=== PATIENT | female | born 1950 | race Caucasian/White ===

== ENCOUNTER → 2024-06-15 | Outpatient (CLI) | payer MEDICARE, OTHER, SELFPAY ==
[2024-06-15 10:18] LABS: Absolute Lymphocyte Count 2.88 X10^3/uL (0.83-4.51); Absolute Neutrophil Count 3.7 X10^3/uL (2.0-7.7); Basophil# 0.05 X10^3/uL; Basophil% 0.7 % (0-1); Eosinophil# 0.22 X10^3/uL; Hematocrit 40.5 % (37-47); Lymphocyte # 2.88 X10^3/ul (0.83-4.51); Lymphocyte % 38.9 % (19-41); Mean Corp Hgb Conc 32.1 g/dL (32-36); Mean Corpuscular Volume 96.4 fL (81-99); Mean Platelet Vol. 9.1 fl (6.2-12.0); Monocyte# 0.51 X10^3/uL; Monocyte% 6.9 % (0-10); NRBC Flagged by Analyzer 0 % (0-5); Neutrophil # 3.73 X10^3/uL (2.7-7.7); Neutrophil % 50.2 % (47-70); Platelet Count 250 K/mm3 (150-450); RBC Distribution Width CV 13.4 % (11.6-14.6); White Blood Count 7.4 K/mm3 (4.4-11.0)
[2024-06-15 10:38] LABS: Vitamin D,25 Hydroxy 20.2 ng/mL
[2024-06-15 11:25] LABS: ALB/GLOB Ratio 0.9 RATIO (0.9-2.4); AST(SGOT) 29 U/L (15-37); Alanine Aminotransfer ALT/SGPT 40 U/L (13-56); Albumin, Serum 3.3 g/dL (3.2-5.0); Alkaline Phosphatase 85 U/L (45-117); Anion Gap 7 (5-15); BUN 14 mg/dL (7-18); BUN/Creat Ratio 14.9 RATIO (10-20); Calcium,Total 8.7 mg/dL (8.5-10.1); Chloride 101 mmol/L (98-107); Cholesterol 171 mg/dL (200); Creatinine, Serum 0.94 mg/dL (0.55-1.02); EST Glomerular Filtration Rate 62 mL/min (>60); Est Glom Filt Rate - Afr Amer 75 mL/min (>60); Globulin 3.6 g/dL (2.2-4.2); Glucose 117 mg/dL (74-106); High Density Lipoprotein 51 mg/dL; Potassium 3.3 mmol/L (3.5-5.1); Protein, Total 6.9 g/dL (6.4-8.2); Sodium Level 136 mmol/L (136-145); T4 Free Direct 1.04 ng/dL (0.76-1.46); Triglycerides 246 mg/dL; Very Low Density Lipoprotein 49 mg/dL (5-40)
== END | disposition home or self-care (01) ==
PROVIDERS: PCP Family Medicine; Referring Provider Family Medicine; Visit Provider Family Medicine
DX: I10 Essential (primary) hypertension (principal); E03.9 Hypothyroidism, unspecified; K21.9 Gastro-esophageal reflux disease without esophagitis
CPT/HCPCS: 36415; 80053; 80061; 82306; 84439; 84443; 85025

== ENCOUNTER → 2024-08-28 | Outpatient (CLI) | payer MEDICARE, OTHER, SELFPAY ==
--- NOTE | 2024-08-28 10:04 | BI_ITS ---
EXAM: SCRN MAMM (CAD)W/TERRENCE BILAT DATE: 08/28/2024 CLINICAL HISTORY: F, Age 73 y/o , SCREENING BREAST CANCER RISK ASSESSMENT: Not reported TECHNIQUE: Bilateral screening digital breast tomosynthesis with 2D and 3D images. Computer aided detection. COMPARISON: Prior exam(s) were compared. FINDINGS: TISSUE DENSITY: The breast tissue is heterogenously dense, which may obscure small masses. Bilateral Breast Mammographic Findings: No suspicious masses, calcifications or other abnormalities are identified. BI/SCRN MAMM (CAD)W/TERRENCE BILAT IMPRESSION: OVERALL FINAL ASSESSMENT: BIRADS 1 NEGATIVE RECOMMENDATION: Routine annual follow-up in 1 Year A letter with findings and recommendations will be mailed to the patient. Reading Location: [id number]
== END | disposition home or self-care (01) ==
LOC: OPBI 10:02
PROVIDERS: PCP Family Medicine; Referring Provider Family Medicine; Visit Provider Family Medicine
DX: Z12.31 Encounter for screening mammogram for malignant neoplasm of breast (principal); Z85.3 Personal history of malignant neoplasm of breast
CPT/HCPCS: 77063; 77067

== ENCOUNTER → 2024-09-07 | Outpatient (CLI) | payer MEDICARE, OTHER, SELFPAY | END | disposition home or self-care (01) | LOC: LABSPEC 08:10 | PROVIDERS: PCP Family Medicine; Referring Provider Nurse Practitioner Family; Visit Provider Nurse Practitioner Family | DX: R30.0 Dysuria (principal) | CPT/HCPCS: 87077; 87086; 87088; 87186 ==

== ENCOUNTER → 2024-12-29 | Outpatient (CLI) | payer MEDICARE, OTHER, SELFPAY ==
[2024-12-29 13:05] LABS: Creatinine, Urine (random) 21.80 mg/dL (28.00-217.00); Microalbumin,Random Urine < 12.0 mg/L (<20 mg/L)
[2024-12-29 16:07] LABS: Potassium 4.3 mmol/L (3.3-5.1)
--- OUTSIDE RECORDS SUMMARY | 2024-12-29 20:13 | XMS RPT_ITS | CCD ---
Author Organization [facility] Care Team Providers Care Cop Breaker Name Role Phone Jose Luis GERMAN, Carisa Primary Care Provider [phone] Carisa Amaya MD Attending Provider Jose Luis GERMAN, Carisa Referring Provider [phone] Jose Luis GERMAN, Carisa Primary Care Provider [phone] Jose Luis GERMAN, Carisa Attending Provider Jose Luis GERMAN, Carisa Referring Provider Roof COMPENSATION SUPERVISOR-C, Adam Gonzalez Attending Provider [phone] Roof COMPENSATION SUPERVISOR-C, Adam H Referring Provider [phone] Jose Luis, Chalon Referring Unavailable Jose Luis, Chalon Primary Care Unavailable Roof COMPENSATION SUPERVISOR, Adam Gonzalez Attending Unavailable Jose Luis, Yoditon Referring Unavailable Jose Luis, Chalon Primary Care Unavailable Jose Luis, Chalon Attending Unavailable Jose Luis, Chalon Referring Unavailable Jose Luis, Chalon Primary Care Unavailable Jose Luis, Chalon Attending Unavailable Jose Luis, Chalon Primary Care Unavailable Roof COMPENSATION SUPERVISOR, Adam H Attending Unavailable Roof COMPENSATION SUPERVISOR, Adam H Referring Unavailable Jose Luis, Chalon Primary Care Unavailable McMorrow COMPENSATION SUPERVISOR, Neal Attending Unavailable McMorrow COMPENSATION SUPERVISOR, Neal Referring Unavailable Allergies Allergy Classification Reported Allergen(s) Allergy Type Date of Onset Reaction(s) Facility (1 source) Sulfonamides (Antibiotic) Propensity to adverse reactions [address] [place] [address] (1 source) Sulfonamides (Antibiotic) Drug allergy (disorder) [address] [place] [address] Repository Medications Current Medications Medication Drug Class(es) Dates Sig (Normalized) Sig (Original) amoxicillin 875 mg / clavulanate 125 mg oral tablet (1 source) Penicillin-class Antibacterial Start: 09-06-2024 Amoxicillin-Pot Clavulanate 875-125 mg tablet Active 1 {tbl} PO TWICE A DAY 14 September 06, 2024 12:00am September 12, 2024 12:00am atenolol 100 mg oral tablet (1 source) beta-Adrenergic Chary Start: 09-06-2024 take 1 tablet by mouth once daily Atenolol 100 mg tablet Active 100 mg PO daily September 06, 2024 12:00am atorvastatin 40 mg oral tablet (1 source) HMG-CoA Reductase Inhibitor Start: 09-06-2024 take 1 tablet by mouth once daily Atorvastatin 40 mg tablet Active 40 mg PO daily September 06, 2024 12:00am levothyroxine sodium 0.125 mg oral tablet (1 source) l-Thyroxine Start: 09-06-2024 Levothyroxine 125 mcg tablet Active 125 ug PO September 06, 2024 12:00am losartan potassium 25 mg oral tablet (1 source) Angiotensin 2 Receptor Cahry Start: 09-06-2024 Losartan 25 mg tablet Active 25 mg PO September 06, 2024 12:00am Omeprazole 20 mg capsule,delayed release(DR/EC) (1 source) Start: 09-06-2024 take 1 capsule by mouth once daily Omeprazole 20 mg capsule,delayed release(DR/EC) Active 20 mg PO daily September 06, 2024 12:00am phenazopyridine hydrochloride 100 mg oral tablet (1 source) Start: 09-06-2024 take 1 tablet by mouth three times daily as needed Phenazopyridine (Pyridium) 100 mg tablet Active 100 mg PO THREE TIMES A DAY as needed September 06, 2024 12:00am pseudoephedrine hydrochloride 30 mg oral capsule (1 source) alpha-Adrenergic Agonist Start: 09-06-2024 take 1 capsule by mouth every four to six hours as needed Pseudoephedrine Hcl (Nasal Decongestant (Pseudoeph)) 30 mg capsule (abuse-resistant) Active 30 mg PO EVERY 4-6 HOURS as needed September 06, 2024 12:00am DNExceed 4 doses/24h Problems Active Problems Problem Classification Problem Date Documented Date Episodic/Chronic Disorders of lipid metabolism (1 source) Hypercholesterolemia; Translations: [Pure hypercholesterolemia, unspecified] 09-06-2024 Chronic Esophageal disorders (1 source) Gastroesophageal reflux disease; Translations: [Gastro-esophageal reflux disease without esophagitis] 09-06-2024 Chronic Essential hypertension (2 sources) Hypertensive disorder; Translations: [Essential (primary) hypertension] Onset: 07-03-2024 09-06-2024 Chronic Osteoporosis (1 source) Age-related osteoporosis without current pathological fracture; Translations: [Age-related osteoporosis without current pathological fracture] Onset: 12-25-2024 Chronic Other upper respiratory infections (2 sources) Maxillary sinusitis; Translations: [Chronic maxillary sinusitis] 09-06-2024 Chronic Thyroid disorders (1 source) Hypothyroidism; Translations: [Hypothyroidism, unspecified] 09-06-2024 Chronic Urinary tract infections (2 sources) Urinary tract infectious disease; Translations: [Urinary tract infection, site not specified] 09-06-2024 Episodic Past or Other Problems Problem Classification Problem Date Documented Da te Episodic/Chronic Genitourinary symptoms and ill-defined conditions (1 source) Dysuria; Translations: [Dysuria] Onset: 09-10-2024 Episodic Other screening for suspected conditions (not mental disorders or infectious disease) (1 source) Encounter for screening mammogram for malignant neoplasm of breast; Translations: [Encounter for screening mammogram for malignant neoplasm of breast] Onset: 09-03-2024 Episodic Results Test Name Value Interpretation Reference Range Facility Urine Cultureon 09-10-2024 [facility] Urine Culture Urine Culture Urine Culture Escherichia coli [place] Count 25,000-50,000 Morganella morganii sp morgani Morganella morganii sp morgani [place] Count 11,000-25,000 Klebsiella pneumoniae sp pneum Ampicillin Islt BRISEYDA >=32 Ampicillin+Sulbac Islt BRISEYDA >=32 R Cefepime Islt BRISEYDA <=0.12 cefTRIAXone Islt BRISEYDA <=0.25 S Ciprofloxacin Islt BRISEYDA <=0.06 S B-Lactamase Extended Susc Islt NEG Gentamicin Islt BRISEYDA <=1 S levoFLOXacin Islt BRISEYDA <=0.12 S Meropenem Islt BRISEYDA <=0.25 S Nitrofurantoin Islt BRISEYDA <=16 S Pip+Tazo Islt BRISEYDA 8 S TMP SMX Islt BRISEYDA <=20 S Morganella morganii sp morgani: REACTION Ampicillin Islt BRISEYDA >=32 R Ampicillin+Sulbac Islt BRISEYDA 16 I Ciprofloxacin Islt BRISEYDA <=0.06 Gentamicin Islt BRISEYDA <=1 S levoFLOXacin Islt BRSIEYDA <=0.12 S Meropenem Islt BRISEYDA <=0.25 S Nitrofurantoin Islt BRISEYDA 128 R Pip+Tazo Islt BRISEYDA <=4 S TMP SMX Islt BRISEYDA <=20 S Klebsiella pneumoniae sp pneum: REACTION Ampicillin Islt BRISEYDA >=32 R Ampicillin+Sulbac Islt BRISEYDA 16 I Cefepime Islt BRISEYDA <=0.12 cefTRIAXone Islt BRISEYDA <=0.25 S Ciprofloxacin Islt BRISEYDA <=0.06 S B-Lactamase Extended Susc Islt NEG Gentamicin Islt BRISEYDA <=1 S levoFLOXacin Islt BRISEYDA <=0.12 S Meropenem Islt BRISEYDA <=0.25 S Nitrofurantoin Islt BRISEYDA 64 I Pip+Tazo Islt BRISEYDA <=4 S TMP SMX Islt BRISEYDA <=20 S [facility] Comment on above: Performed By: #### M 100.2200 #### [facility] [address] [place], [address] Urine cultureOrdered By: Jr Chowdary on 09-07-2024 Bacteria identified Cx Nom (U) Escherichia coli Abnormal [facility] Bacteria identified Cx Nom (U) Morganella morganii sp morgani Abnormal [facility] Bacteria identified Cx Nom (U) Klebsiella pneumoniae sp pneum Abnormal [facility] - Chemistry and C hemistry - challengeOrdered By: Adam Chowdary on 09-06-2024 Bilirubin Ql (U) Negative [facility] Glucose Ql (U) Negative [facility] Ketones Ql (U) Negative [facility] pH (U) 5.0 [pH] [facility] Specific gravity (U) [Rel density] <1.005 [facility] Urobilinogen (U) [Mass/Vol] 0.5786592 mg/dL [facility] - Hematology and Cell countsOrdered By: Adam Chowdary on 09-06-2024 Hemoglobin Ql (U) Trace [facility] - Specimen inform ationOrdered By: Adam Chowdary on 09-06-2024 Clarity (U) Clear [facility] Color (U) Yellow [facility] - UrinalysisOrder ed By: Adam Chowdary on 09-06-2024 Nitrite Ql (U) Negative [facility] Protein Ql (U) [facility] No Panel InformationOrdered By: Adam Chowdary on 09-06-2024 Urine Leukocytes Positive [facility] Urine Non-Hemolyzed Blood [facility] Urgent Care Visit Reporton 0 09-06-2024 Urgent Care Visit Report [facility] [address], [address] [place] [address] OFFICE VISIT Date of Service: 09/06/24 MR#: [id number] Acct: [id number] Name: DAPHNE DEVINE Rep #: [id number] : 1950 Provider: ANALISA bundy Age/Sex: 73/F Location: [facility] Status: Signed Intake Vital Signs 09/06/24 11:36 Height 5 ft 6 in Weight: 207 lb BMI 33.4 BP 168/92 H Blood Pressure Location Rt brachial Position Sitting Respiration 14 Pulse 64 Pulse Source Monitor Temp 98.4 F Temp Source Temporal Pulse Oximetry (%) 99 Oxygen Delivery Method room air Intake Visit Reasons: Chief Complaint: Sinus congestion, dysuria Oral Surgeon Required: No Accompanied by: Self Is patient in pain?: No Allergies Sulfa (Sulfonamide Antibiotics) Adverse Reaction (Verified 09/06/24 11:22) Nausea Medications ???Medication ???Instructions ???Recorded ???Confirmed ???Type amoxicillin 875 mg-potassium 1 tab PO BID 7 days #14 tabs 09/0609/06/24 Rx clavulanate 125 mg tablet atenolol 100 mg tablet 100 mg PO QDAY 09/06/24 09/06/24 H istory atorvastatin 40 mg tablet 40 mg PO QDAY 09/06/24 09/06/24 Hi story levothyroxine 125 mcg tablet 125 mcg PO 09/06/24 09/06/24 Histo ry losartan 25 mg tablet 25 mg PO 09/06/24 09/06/24 History omeprazole 20 mg capsule,delayed 20 mg PO QDAY 09/06/24 09/06/24 Hi story release phenazopyridine 100 mg tablet 100 mg PO TID PRN 09/06/24 5 History (Pyridium) pseudoephedrine HCl 30 mg capsule 30 mg PO Q4-6H PRN 09/06/2409/06 History (abuse-resistant) (Nasal Decongestant (pseudoephedrine)) Have you fallen in the past year?: No PFSH Medical History (Updated 09/06/24 @ 12:00 by Adam Chowdary COMPENSATION SUPERVISOR, COMPENSATION SUPERVISOR-C) GERD (gastroesophageal reflux disease) Hypothyroidism Breast cancer Hypercholesteremia Hypertension Surgical History (Updated 09/06/24 @ 11:24 by Belén Vasquez) S/P colon resection S/P hysterectomy Family History (Updated 09/06/24 @ 11:36 by Belén Vasquez) Mother Breast cancer Sister Breast cancer Social History (Updated 09/06/24 @ 11:24 by Belén Vasquez) Smoking Status: Never smoker alcohol intake: current alcohol intake frequency: a few times a month Alcohol type: wine HPI HPI Chief Complaint: Sinus congestion, dysuria Details: DAPHNE DEVINE, is a 73 F who presents to the office today for concerns regarding possible sinus infection. She states she was seen with primary care provider and started on Augmentin. She states her symptoms improved, but now have returned. She also expresses concerns for possible urinary tract infection. She was prescribed Augmentin for 7 days, but only took 5 and gave some to her . She has taken AZO with some relieve. ROS Const Constitutional: Positive for headache(s); No body ache, chills, fatigue, fever(s) or change in appetite Eyes Eyes: No blurry vision, change in vision, double vision, irritation, discharge, vision loss, dry eyes, bulging eyes, floaters, visual disturbances, eye pain, Light sensitivity, spots in vision, tunnel vision or other ENT ENT: Positive for sinus pressure, sinus pain, nasal discharge, post nasal drip, headache(s) and sore throat; No ear or mastoid pain, ear discharge, ear pressure, tinnitus, dizziness/vertigo, nosebleed/epistaxis , nasal congestion, nose pain, facial pain, dental pain, difficulty swallowing, bad breath, hoarseness, lip swelling, mouth lesions, mouth pain, neck pain, tongue swelling or throat swelling Resp Respiratory: Positive for cough Cough: Yes non-productive; No change in phlegm color, chest congestion, hemoptysis, pain on inspiration, shortness of breath, pain with cough, stridor or wheezing Cardio Cardiology: No chest pain at rest, chest pain with exertion, shortness of breath, dyspnea on exertion or lightheadedness Gastro GI: No abdominal pain, change in bowel habits, constipation, diarrhea, difficulty swallowing, nausea/dyspepsia or vomiting Genitourinary-Femal e: Positive for painful urination; No burning urination, urinary frequency, urinary urgency or side pain Musc Musculoskeletal: No joint pain or neck pain Skin Skin: No rash Neuro Neurology: Positive for headache(s); No visual disturbances Psych Psychiatric: No change in appetite Endo Endocrine: No fatigue Aller/Imm Allergy/Immunologic : No lip swelling, throat swelling, tongue swelling or wheezing Exam Const General: cooperative, healthy appearing, comfortable and no acute distress Orientation: alert, awake and oriented x3 HENMT Head: normal to inspection and normocephalic Ears: hearing grossly normal bilaterally, external ears normal and TM's normal bilaterally Nose: external nose normal, nares normal and no nasal discharge (more content not included)... [facility] Breast imaging reportOrdered By: Carmela Caruso on 09-01-2024 Study report [facility] Imaging Services [address] [place], [place] [address] SCRN MAMM (CAD)W/TERRENCE BILAT MR#: [id number] Acct: [id number] Name: DAPHNE DEVINE Rep #: [id number] : 1950 F 73 From: Juan M Mullins MD PCP: Dr. Carisa Amaya MD Status: REG CL I Study:SCRN MAMM (CAD)W/TERRENCE BILAT Date of Exa m: 08/28/24 Exam# [id number] Ordering Dr: Sis Amaya MD EXAM: SCRN MAMM (CAD)W/TERRENCE BILAT DATE: 08/28/2024 CLINICAL HISTORY: F, Age 73 y/o , SCREENING BREAST CANCER RISK ASSESSMENT: Not reported TECHNIQUE: Bilateral screening digital breast tomosynthesis with 2D and 3D images. Computeraided detection. COMPARISON: Prior exam(s) were compared. FINDINGS: TISSUE DENSITY: The breast tissue is heterogenously dense, which may obscure small masses. Bilateral Breast Mammographic Findings: No suspicious masses, calcifications or other abnormalities are identified. BI/SCRN MAMM (CAD)W/TERRENCE BILAT IMPRESSION: OVERALL FINAL ASSESSMENT: BIRADS 1 NEGATIVE RECOMMENDATION: Routine annual follow-up in 1 Year A letter with findings and recommendations will be mailed to the patient. Reading Location: [id number] CC: Dr. Carisa Amaya MD ~ Petrography Teacher: Signed [facility] SCRN MAMM (CAD)W/TERRENCE BILATo n 08-28-2024 SCRN MAMM (CAD)W/TERRENCE BILAT [facility] Imaging Services [address] [place], [place] [address] SCRN MAMM (CAD)W/TERRENCE BILAT MR#: [id number] Acct: [id number] Name: DAPHNE DEVINE Rep #: [id number] : 1950 F 73 From: Carmela Martinez i, MD PCP: Dr. Carisa Amaya MD Status: REG CLI Study: SCRN MAMM (CAD)W/TERRENCE BILAT Date of Exam: 06/23 Exam# [id number] Ordering Dr: Carisa Amaya MD EXAM: SCRN MAMM (CAD)W/TERRENCE BILAT DATE: 08/28/2024 CLINICAL HISTORY: F, Age 73 y/o , SCREENING BREAST CANCER RISK ASSESSMENT: Not reported TECHNIQUE: Bilateral screening digital breast tomosynthesis with 2D and 3D images. Computer aided detection. COMPARISON: Prior exam(s) were compared. FINDINGS: TISSUE DENSITY: The breast tissue is heterogenously dense, which may obscure small masses. Bilateral Breast Mammographic Findings: No suspicious masses, calcifications or other abnormalities are identified. BI/SCRN MAMM (CAD)W/TERRENCE BILAT IMPRESSION: OVERALL FINAL ASSESSMENT: BIRADS 1 NEGATIVE RECOMMENDATION: Routine annual follow-up in 1 Year A letter with findings and recommendations will be mailed to the patient. Reading Location: [id number] CC: Dr. Carisa Amaya MD Petrography Teacher: Signed [facility] 19-TW-Hoq[place]au DOrdered By: Nichelle Amaya on 06-15-2024 Vitamin D 25-Hydroxy 20.2 ng/mL [facility] Comment on above: Vitamin D 25(OH) Sta tus Range Deficiency <20 ng/mL (50nmol/L) Insufficiency 20 - 30 ng/mL (50 - 75 nmol/L) Sufficiency 30 - 100 ng/mL (75 - 250 nmol/L) Toxicity >100 ng/mL (>250 nmol/L) Absolute lymphocyte countOrd ered By: Carisa Grayke on 06-15-2024 Lymphocytes Auto (Unsp spec) [#/Vol] 2.88 10*3/uL 0.83-4.51 [facility] Absolute neutrophil countOrd ered By: Carisa Jose Luis on 06-15-2024 Neutrophils (Bld) [#/Vol] 3.7 10*3/uL 2.0-7.7 [facility] Albumin to globulin ratioOrd ered By: Carisa Grayke on 06-15-2024 Albumin/Globulin [Mass ratio] 0.9 {ratio} 0.9-2.4 [facility] Automated lymphocyte count a s percentage of total leukocytesOrdered By: Carisa Jose Luis on 06-15-2024 Lymphocytes/100 WBC Auto (Unsp spec) 38.9 % 19-41 [facility] Basophil percentageOrdered B y: Yoditvito Jose Luis on 06-15-2024 Basophils/100 WBC (Bld) 0.7 % 0-[address] [facility] Bilirubin, totalOrdered By: Carisa Jose Luis on 06-15-2024 Bilirubin [Mass/Vol] 0.60 mg/dL 0.20-1.00 [facility] Comment on above: For patients on eltr ombopag therapy, use of Dimension [place] TBIL is not recommended. Blood urea nitrogen (BUN)/cr eatinine ratioOrdered By: Yoditvito Amaya on 06-15-2024 Urea nitrogen/Creatinine [Mass ratio] 14.9 mg/mg 10-20 [facility] CBC W/Diff, Automatedon 05-30 Absolute Lymph 2.88 X10 3/uL Normal 0.83-4.51 [facility] Comment on above: Performed By: #### L 506.0400, L100.0100, L506.1000, L501.9520, L500.4050, L500.4100 #### [facility] [address] [place], [address] Absolute Neut 3.7 X10 3/uL Normal 2.0-7.7 [facility] Comment on above: Performed By: #### L 506.0400, L100.0100, L506.1000, L501.9520, L500.4050, L500.4100 #### [facility] [address] [place], [address] Basophils/100 WBC (Bld) 0.7 % Normal 0-[address] [facility] Comment on above: Performed By: #### L 506.0400, L100.0100, L506.1000, L501.9520, L500.4050, L500.4100 #### [facility] [address] [place], [address] Eosinophils/100 WBC (Bld) 3.0 % Normal 0-5 [facility] Comment on above: Performed By: #### L 506.0400, L100.0100, L506.1000, L501.9520, L500.4050, L500.4100 #### [facility] [address] [place], [address] Erythrocyte distribution width (RBC) [Ratio] 13.4 % Normal 11.6-14.6 [facility] Comment on above: Performed By: #### L 506.0400, L100.0100, L506.1000, L501.9520, L500.4050, L500.4100 #### [facility] [address] [place], [address] Hematocrit (Bld) [Volume fraction] 40.5 % Normal 37-47 [facility] Comment on above: Performed By: #### L 506.0400, L100.0100, L506.1000, L501.9520, L500.4050, L500.4100 #### [facility] [address] [place], [address] Hemoglobin (Bld) [Mass/Vol] 13.0 g/dL Normal 12.0-15.0 [facility] Comment on above: Performed By: #### L 506.0400, L100.0100, L506.1000, L501.9520, L500.4050, L500.4100 #### [facility] [address] [place], [address] IG% 0.300 Normal 0.0-0.9 [facility] Comment on above: Result Comment: IG% - Immature Granulocytes (promyelocytes, myelocytes and metamyelocytes) > 1% indicates that a LEFT SHIFT is Present. Performed By: #### L 506.0400, L100.0100, L506.1000, L501.9520, L500.4050, L500.4100 #### [facility] [address] [facility] [place], [address] Lymphocytes/100 WBC (Bld) 38.9 % Normal 19-41 [facility] Comment on above: Performed By: #### L 506.0400, L100.0100, L506.1000, L501.9520, L500.4050, L500.4100 #### [facility] [address] [facility] [place], [address] MCH (RBC) [Entitic mass] 31.0 pg Normal 27.0-32.0 [facility] Comment on above: Performed By: #### L 506.0400, L100.0100, L506.1000, L501.9520, L500.4050, L500.4100 #### [facility] [address] [place], [address] MCHC (RBC) [Mass/Vol] 32.1 g/dL Normal 32-36 [facility] Comment on above: Performed By: #### L 506.0400, L100.0100, L506.1000, L501.9520, L500.4050, L500.4100 #### [facility] [address] [place], [address] MCV (RBC) [Entitic vol] 96.4 fL Normal 81-[address] [facility] Comment on above: Performed By: #### L 506.0400, L100.0100, L506.1000, L501.9520, L500.4050, L500.4100 #### [facility] [address] [place], [address] Monocytes/100 WBC (Bld) 6.9 % Normal 0-[address] [facility] Comment on above: Performed By: #### L 506.0400, L100.0100, L506.1000, L501.9520, L500.4050, L500.4100 #### [facility] [address] [place], [address] Neutrophils/100 WBC (Bld) 50.2 % Normal 47-70 [facility] Comment on above: Performed By: #### L 506.0400, L100.0100, L506.1000, L501.9520, L500.4050, L500.4100 #### [facility] [address] [place], [address] Nucleated RBC (Bld) [#/Vol] 0 10*3/uL Normal 0-5 [facility] Comment on above: Performed By: #### L 506.0400, L100.0100, L506.1000, L501.9520, L500.4050, L500.4100 #### [facility] [address] [place], [address] Platelet mean volume (Bld) [Entitic vol] 9.1 fL Normal 6.2-12.0 [facility] Comment on above: Performed By: #### L 506.0400, L100.0100, L506.1000, L501.9520, L500.4050, L500.4100 #### [facility] [address] [place], [address] Platelets (Bld) [#/Vol] 250 10*3/uL Normal 150-450 [facility] Comment on above: Performed By: #### L 506.0400, L100.0100, L506.1000, L501.9520, L500.4050, L500.4100 #### [facility] [address] [place], [address] RBC (Bld) [#/Vol] 4.20 10*6/uL Normal 4.2-5.4 [facility] Comment on above: Performed By: #### L 506.0400, L100.0100, L506.1000, L501.9520, L500.4050, L500.4100 #### [facility] [address] [place], [address] RDW SD 48.0 fl High 35.1-43.9 [facility] Comment on above: Performed By: #### L 506.0400, L100.0100, L506.1000, L501.9520, L500.4050, L500.4100 #### [facility] [address] [place], [address] WBC (Bld) [#/Vol] 7.4 10*3/uL Normal 4.4-11.0 [facility] Comment on above: Performed By: #### L 506.0400, L100.0100, L506.1000, L501.9520, L500.4050, L500.4100 #### [facility] [address] [place], [address] Carbon dioxide measurementOr dered By: Carisa Amaya on 06-15-2024 CO2 [Moles/Vol] 28.0 mmol/L 21.0-32.0 [facility] Chloride measurementOrdered By: Carisa Amaya on 06-15-2024 Chloride [Moles/Vol] 101 mmol/L 98-107 [facility] Comprehensive Metabolic Prof ilon 06-15-2024 Albumin [Mass/Vol] 3.3 g/dL Normal 3.2-5.0 [facility] Comment on above: Performed By: #### L 506.0400, L100.0100, L506.1000, L501.9520, L500.4050, L500.4100 #### [facility] [address] [place], [address] Albumin/Globulin [Mass ratio] 0.9 {ratio} Normal 0.9-2.4 [facility] Comment on above: Performed By: #### L 506.0400, L100.0100, L506.1000, L501.9520, L500.4050, L500.4100 #### [facility] [address] [place], [address] ALK P 85 U/L Normal 45-117 [facility] Comment on above: Performed By: #### L 506.0400, L100.0100, L506.1000, L501.9520, L500.4050, L500.4100 #### [facility] [address] [place], [address] ALT [Catalytic activity/Vol] 40 U/L Normal 13-56 [facility] Comment on above: Performed By: #### L 506.0400, L100.0100, L506.1000, L501.9520, L500.4050, L500.4100 #### [facility] [address] [place], [address] AST [Catalytic activity/Vol] 29 U/L Normal 15-37 [facility] Comment on above: Performed By: #### L 506.0400, L100.0100, L506.1000, L501.9520, L500.4050, L500.4100 #### [facility] [address] [place], [address] Bilirubin [Mass/Vol] 0.60 mg/dL Normal 0.20-1.00 [facility] Comment on above: Result Comment: For patients on eltrombopag therapy, use of Dimension [place] TBIL is not recommended. Performed By: #### L 506.0400, L100.0100, L506.1000, L501.9520, L500.4050, L500.4100 #### [facility] [address] [place], [address] BUN/CRE 14.9 RATIO Normal 10-20 [facility] Comment on above: Performed By: #### L 506.0400, L100.0100, L506.1000, L501.9520, L500.4050, L500.4100 #### [facility] [address] [place], [address] CA,Total 8.7 mg/dL Normal 8.5-10.1 [facility] Comment on above: Performed By: #### L 506.0400, L100.0100, L506.1000, L501.9520, L500.4050, L500.4100 #### [facility] [address] [place], [address] Chloride [Moles/Vol] 101 mmol/L Normal 98-107 [facility] Comment on above: Performed By: #### L 506.0400, L100.0100, L506.1000, L501.9520, L500.4050, L500.4100 #### [facility] [address] [place], [place] [address] CO2 [Moles/Vol] 28.0 mmol/L Normal 21.0-32.0 [facility] Comment on above: Performed By: #### L 506.0400, L100.0100, L506.1000, L501.9520, L500.4050, L500.4100 #### [facility] [address] [place], [address] Creatinine [Mass/Vol] 0.94 mg/dL Normal 0.55-1.02 [place] Comment on above: Result Comment: The validity of the calculated GFR GFRAA in patients over 70 years has not been determined. Clinical correlation is essential. Performed By: #### L 506.0400, L100.0100, L506.1000, L501.9520, L500.4050, L500.4100 #### [facility] [address] [place], [address] EST GFR - AA 75 mL/min Normal >60 [facility] Comment on above: Result Comment: Afri can Chilean GFR Calc Performed By: #### L 506.0400, L100.0100, L506.1000, L501.9520, L500.4050, L500.4100 #### [facility] [address] [place], [address] GAP 7 Normal 5-15 [facility] Comment on above: Performed By: #### L 506.0400, L100.0100, L506.1000, L501.9520, L500.4050, L500.4100 #### [facility] [address] [place], [address] GFR/1.73 sq M.predicted among non-blacks MDRD (S/P/Bld) [Vol rate/Area] 62 mL/min/{1.73_m2} Normal >60 [facility] Comment on above: Result Comment: Non- GFR Calc Performed By: #### L 506.0400, L100.0100, L506.1000, L501.9520, L500.4050, L500.4100 #### [facility] [address] [place], [address] Globulin (S) [Mass/Vol] 3.6 g/dL Normal 2.2-4.2 [facility] Comment on above: Performed By: #### L 506.0400, L100.0100, L506.1000, L501.9520, L500.4050, L500.4100 #### [facility] [address] [place], [address] Glucose [Mass/Vol] 117 mg/dL High 74-106 [facility] Comment on above: Result Comment: Fast ing Glucose result from 100 to 125 mg/dL suggests IMPAIRED HOMEOSTASIS per A.D.A. criteria. Performed By: #### L 506.0400, L100.0100, L506.1000, L501.9520, L500.4050, L500.4100 #### [facility] [address] [place], [address] Potassium [Moles/Vol] 3.3 mmol/L Low 3.5-5.1 [place] Comment on above: Performed By: #### L 506.0400, L100.0100, L506.1000, L501.9520, L500.4050, L500.4100 #### [facility] [address] [place], [address] Sodium [Moles/Vol] 136 mmol/L Normal 136-145 [facility] Comment on above: Performed By: #### L 506.0400, L100.0100, L506.1000, L501.9520, L500.4050, L500.4100 #### [facility] [address] [place], [address] T PROT 6.9 g/dL Normal 6.4-8.2 [facility] Comment on above: Performed By: #### L 506.0400, L100.0100, L506.1000, L501.9520, L500.4050, L500.4100 #### [facility] [address] [place], [address] Urea nitrogen [Mass/Vol] 14 mg/dL Normal 7-18 [facility] Comment on above: Performed By: #### L 506.0400, L100.0100, L506.1000, L501.9520, L500.5100, L500.4100 #### [facility] [place], [address] Direct serum free thyroxine (FT4) measurementOrdered By: Carisa Amaya on 06-15-2024 Free T4 [Mass/Vol] 1.04 ng/dL 0.76-1.46 [facility] Eosinophil percentageOrdered By: Carisa Amaya on 06-15-2024 Eosinophils/100 WBC (Bld) 3.0 % 0-5 [facility] Erythrocyte distribution wid th ratioOrdered By: Carisa Amaya on 06-15-2024 Erythrocyte distribution width (RBC) [Ratio] 13.4 % 11.6-14.6 [facility] Erythrocyte distribution wid th standard deviationOrdered By: Carisa Jose Luis on 06-15-2024 Erythrocyte distribution width (RBC) [Entitic vol] 48.0 fL High 35.1-43.9 [facility] Erythrocyte distribution width (RBC) [Ratio] 48.0 fl High 35.1-43.9 [facility] Estimated glomerular filtrat ion rate (GFR) AmericanOrdered By: Carisa Amaya on 06-15-2024 Estimated GFR (MDRD) Amer 75 mL/min >60 [facility] Comment on above: GFR Calc Glomerular filtration rate ( GFR) estimationOrdered By: Carisa Amaya on 06-15-2024 Estimated GFR (MDRD) Non-Af Amer 62 mL/min >60 [facility] Comment on above: Non- GFR Calc GFR/1.73 sq M.predicted among non-blacks MDRD (S/P/Bld) [Vol rate/Area] 62 mL/min/{1.73_m2} >60 [facility] Comment on above: Non- GFR Calc Glucose measurementOrdered B y: Carisa Amaya on 06-15-2024 Glucose [Mass/Vol] 117 mg/dL High 74-106 [facility] Comment on above: Fasting Glucose resu lt from 100 to 125 mg/dL suggests IMPAIRED HOMEOSTASIS per A.D.A. criteria. Hematocrit Auto (Bld) [Volum e fraction]Ordered By: Carisa Amaya on 06-15-2024 Hematocrit (Bld) [Volume fraction] 40.5 % 37-47 [facility] Hemoglobin measurementOrdere d By: Carisa Amaya on 06-15-2024 Hemoglobin (Bld) [Mass/Vol] 13.0 g/dL 12.0-15.0 [facility] High density lipoprotein (HD L) measurementOrdered By: Carisa Amaya on 06-15-2024 Cholesterol in HDL [Mass/Vol] 51 mg/dL >40 [facility] Comment on above: The drugs N-Acetylcy steine and Metamizole may falsely depress this assay. Reference Range HDL <40 mg/dL Low HDL Cholesterol HDL >or= 60 mg/dL High HDL Cholesterol Immature granulocytes/100 WB C Auto (Bld)Ordered By: Carisa Amaya on 06-15-2024 Immature granulocytes/100 WBC (Bld) 0.300 % 0.0-0.9 [facility] Comment on above: IG% - Immature Granu locytes (promyelocytes, myelocytes and metamyelocytes) > 1% indicates that a LEFT SHIFT is Present. Laboratory - Chemistry and C hemistry - challengeOrdered By: Carisa Amaya on 06-15-2024 AST [Catalytic activity/Vol] 29 U/L 15-37 [facility] Lipid Profileon 06-15-2024 Cholesterol [Mass/Vol] 171 mg/dL Normal 200 [facility] Comment on above: Result Comment: <200 mg/dL Desirable 200-240 mg/dL Borderline >240 mg/dL High Risk Performed By: #### L 506.0400, L100.0100, L506.1000, L501.9520, L500.4050, L500.4100 #### [facility] [address] [place], [place], [id number] Cholesterol in HDL [Mass/Vol] 51 mg/dL Normal [facility] Comment on above: Result Comment: The drugs N-Acetylcysteine and Metamizole may falsely depress this assay. Reference Range HDL <40 mg/dL Low HDL Cholesterol HDL >or= 60 mg/dL High HDL Cholesterol Performed By: #### L 506.0400, L100.0100, L506.1000, L501.9520, L500.4050, L500.4100 #### [facility] [address] [place], [address] Cholesterol in LDL [Mass/Vol] 71 mg/dL Normal 0-130 [facility] Comment on above: Performed By: #### L 506.0400, L100.0100, L506.1000, L501.9520, L500.4050, L500.4100 #### [facility] [address] [place], [address] Cholesterol in VLDL [Mass/Vol] 49 mg/dL High 5-40 [facility] Comment on above: Performed By: #### L 506.0400, L100.0100, L506.1000, L501.9520, L500.4050, L500.4100 #### [facility] [address] [place], [address] Triglyceride [Mass/Vol] 246 mg/dL High [facility] Comment on above: Result Comment: The drugs N-Acetylcysteine and Metamizole may falsely depress this assay. Serum Triglycerides Reference Interval Normal <150 mg/dL Borderline high 150 - 199 mg/dL High 200 - 499 mg/dL Very High > or = 500 mg/dL Performed By: #### L 506.0400, L100.0100, L506.1000, L501.9520, L500.4050, L500.4100 #### [facility] [address] [place], [address] Low density lipoprotein (LDL ) cholesterol measurementOrdered By: Carisa Amaya on 06-15-2024 Cholesterol in LDL [Mass/Vol] 71 mg/dL 0-130 [facility] Lymphocytes Auto (Unsp spec) [#/Vol]Ordered By: Carisa Amaya on 06-15-2024 Lymphocytes (Bld) [#/Vol] 2.88 10*3/uL 0.83-4.5 1 [facility] Lymphocytes/100 WBC Auto (Un sp spec)Ordered By: Yoditvito Jose Luis on 06-15-2024 Lymphocytes/100 WBC (Bld) 38.9 % 19-41 [facility] MCV (mean corpuscular volume ) determinationOrdered By: Carisa Amaya on 06-15-2024 MCV (RBC) [Entitic vol] 96.4 fL 81-[address] [facility] Mean corpuscular hemoglobin (MCH) determinationOrdered By: Carisa Amaya on 06-15-2024 MCH (RBC) [Entitic mass] 31.0 pg 27.0-32.0 [facility] Mean corpuscular hemoglobin concentration (MCHC) determinationOrdered By: Carisa Amaya on 06-15-2024 MCHC (RBC) [Mass/Vol] 32.1 g/dL 32-36 [place] Mean platelet volume determi nationOrdered By: Carisa Amaya on 06-15-2024 Platelet mean volume (Bld) [Entitic vol] 9.1 fL 6.2-12.0 [facility] Monocyte percentageOrdered B y: Carisa Amaya on 06-15-2024 Monocytes/100 WBC (Bld) 6.9 % 0-[address] [facility] Neutrophil percentageOrdered By: Carisa Amaya on 06-15-2024 Neutrophils/100 WBC (Bld) 50.2 % 47-70 [facility] Nucleated red blood cell per centageOrdered By: Carisa Amaya on 06-15-2024 Nucleated RBC/100 WBC (Bld) [Ratio] 0 % 0-5 [facility] Platelet countOrdered By: Fritz Amaya on 06-15-2024 Platelets (Bld) [#/Vol] 250 10*3/uL 150-450 [facility] Potassium measurementOrdered By: Carisa Amaya on 06-15-2024 Potassium [Moles/Vol] 3.3 mmol/L Low 3.5-5.1 [place] RBC Auto (Bld) [#/Vol]Ordere d By: Carisa Amaya on 06-15-2024 RBC (Bld) [#/Vol] 4.20 10*6/uL 4.2-5.4 [facility] Serum anion gap measurementO rdered By: Carisa Amaya on 06-15-2024 Anion gap [Moles/Vol] 7 mmol/L 5-15 [place] Serum globulin measurementOr dered By: Carisa Amaya on 06-15-2024 Globulin (S) [Mass/Vol] 3.6 g/dL 2.2-4.2 [facility] Serum or plasma alanine gomez otransferase (ALT) measurementOrdered By: Carisa Amaya on 06-15-2024 ALT [Catalytic activity/Vol] 40 U/L 13-56 [facility] Serum or plasma albumin gabe urement (mass/volume)Ordered By: Carisa Amaya on 06-15-2024 Albumin [Mass/Vol] 3.3 g/dL 3.2-5.0 [facility] Serum or plasma alkaline deven sphatase measurementOrdered By: Carisa Amaya on 06-15-2024 ALP [Catalytic activity/Vol] 85 U/L 45-117 [facility] Serum or plasma calcium gabe urement (mass/volume)Ordered By: Cairsa Amaya on 06-15-2024 Calcium [Mass/Vol] 8.7 mg/dL 8.5-10.1 [facility] Serum or plasma cholesterol measurement (mass/volume)Ordered By: Carisa Amaya on 06-15-2024 Cholesterol [Mass/Vol] 171 mg/dL <200 [facility] Comment on above: <200 mg/dL Desirable 200-240 mg/dL Borderline >240 mg/dL High Risk Serum or plasma creatinine m easurement (mass/volume)Ordered By: Carisa Amaya on 06-15-2024 Creatinine [Mass/Vol] 0.94 mg/dL 0.55-1.02 [place] Comment on above: The validity of the calculated GFR & GFRAA in patients over 70 years has not been determined. Clinical correlation is essential. Serum or plasma thyroid stim ulating hormone (TSH) measurement (units/volume)Ordered By: Carisa Amaya on 06-15-2024 TSH Qn 5.540 uIU/mL High 0.358-3.740 [facility] Serum or plasma urea nitroge n measurement (mass/volume)Ordered By: Carisa Amaya on 06-15-2024 Urea nitrogen [Mass/Vol] 14 mg/dL 7-18 [facility] Sodium levelOrdered By: Yodit Amaya on 06-15-2024 Sodium [Moles/Vol] 136 mmol/L 136-145 [facility] T4 Free Directon 06-15-2024 T4 FREE DIRECT 1.04 ng/dL Normal 0.76-1.46 [facility] Comment on above: Performed By: #### L 506.0400, L100.0100, L506.1000, L501.9520, L500.4050, L500.4100 #### [facility] [address] [place], [place], [id number] TSH QnOrdered By: Carisa you on 06-15-2024 Thyroid Stimulating Hormone (TSH) 5.540 uIU/mL High 0.358-3.740 [facility] Thyroid Stim Hormone (TSH)on 06-15-2024 TSH 5.540 uIU/mL High 0.358-3.740 [facility] Comment on above: Performed By: #### L 506.0400, L100.0100, L506.1000, L501.9520, L500.4050, L500.4100 #### [facility] [address] [place], [place], [id number] Total proteinOrdered By: Sis Amaya on 06-15-2024 Protein [Mass/Vol] 6.9 g/dL 6.4-8.2 [facility] Triglycerides measurementOrd ered By: Carisa Amaya on 06-15-2024 Triglyceride [Mass/Vol] 246 mg/dL High <[address] [facility] Comment on above: The drugs N-Acetylcy steine and Metamizole may falsely depress this assay.Serum Triglycerides Reference Interval Normal <150 mg/dL Borderline high 150 - 199 mg/dL High 200 - 499 mg/dL Very High > or = 500 mg/dL Very low density lipoprotein (VLDL) cholesterol measurementOrdered By: Carisa Amaya on 06-15-2024 Very low density lipoprotein (VLDL) cholesterol measurement 49 mg/dL High 5-40 [facility] VLDL Cholesterol 49 mg/dL High -40 [facility] Vitamin D,25 Hydroxyon 06-15 Vitamin D 25-OH 20.2 ng/mL Normal [facility] Comment on above: Result Comment: Mindy min D 25(OH) Status Range Deficiency <20 ng/mL (50nmol/L) Insufficiency 20 - 30 ng/mL (50 - 75 nmol/L) Sufficiency 30 - 100 ng/mL (75 - 250 nmol/L) Toxicity >100 ng/mL (>250 nmol/L) Performed By: #### L 506.0400, L100.0100, L506.1000, L501.9520, L500.4050, L500.4100 #### [facility] [address] [place], [address] White blood cell (WBC) count Ordered By: Carisa Amaya on 06-15-2024 WBC (Bld) [#/Vol] 7.4 10*3/uL 4.4-11.0 [facility] Vital Signs Date Time Vital Sign Value Performing Clinician Pedro hazely 09-06-2024 11:36-0400 Body height 167.64 cm Carisa Amaya MD Work Phone: [facility] 09-06-2024 11:36-0400 Body mass index (BMI) [Ratio] 33.4 kg/m2 Carisa Amaya MD Work Phone: [facility] 09-06-2024 11:36-0400 Body temperature 98.4 [degF] Carisa Amaya MD Work Phone: [facility] 09-06-2024 11:36-0400 Body weight 93.89 kg Carisa Amaya MD Work Phone: [facility] 09-06-2024 11:36-0400 Diastolic blood pressure 92 mm[Hg] Carisa Amaya MD Work Phone: [facility] 09-06-2024 11:36-0400 Heart rate 64 /min Carisa Amaya MD Work Phone: [facility] 09-06-2024 11:36-0400 Respiratory rate 14 /min Carisa Amaya MD Work Phone: [facility] 09-06-2024 11:36-0400 SaO2% (BldA) [Mass fraction] 99 % Carisa Amaya MD Work Phone: [facility] 09-06-2024 11:36-0400 Systolic blood pressure 168 mm[Hg] Carisa Amaya MD Work Phone: [facility] Encounters Encounter Date Encounter Type Care Provider Facility Start: 12-30-2024 ambulatory [facility] Facility:[facility] Start: 09-07-2024 End: 09-07-2024 ambulatory Carisa Amaya MD Work Phone: [facility] Work Phone: Start: 09-07-2024 End: 09-07-2024 Patient encounter procedure Adam HAUSER -[facility] Work Phone: Start: 09-06-2024 End: 09-06-2024 Patient encounter procedure Adam [facility] Work Phone: Start: 09-06-2024 End: 09-07-2024 ambulatory Carisa [facility] Start: 08-28-2024 End: 08-28-2024 ambulatory Carisa Amaya MD Work Phone: [facility] Work Phone: Start: 08-28-2024 End: 08-28-[address] Carisa Amaya MD -[facility] Work Phone: Start: 08-28-2024 End: 08-28-2024 ambulatory Carisa Amaya Facility[facility] Start: 06-15-2024 End: 06-15-2024 ambulatory Carisa Amaya MD Work Phone: [facility] Work Phone: Start: 06-15-2024 End: 06-15-[address] Carisa Amaya MD -Laboratory, [place] Work Phone: Start: 06-15-2024 End: 06-15-2024 ambulatory Carisa Amaya Facility[facility] Procedures Date Procedure Procedure Detail Performing Clinician Start: 09-07-2024 Urine culture Carisa phoenix MD Work Phone: Start: 08-28-2024 Screening mammography C faviola Amaya MD Work Phone: Start: 06-15-2024 Measurement of renal function Carisa Amaya MD Work Phone: Comment on above: GFR Calc Start: 06-15-2024 Vitamin D, 25-hydrox y measurement Carisa Amaya MD Work Phone: Comment on above: Vitamin D 25(OH) Sta tus Range Deficiency <20 ng/mL (50nmol/L) Insufficiency 20 - 30 ng/mL (50 - 75 nmol/L) Sufficiency 30 - 100 ng/mL (75 - 250 nmol/L) Toxicity >100 ng/mL (>250 nmol/L) Payers Date Payer Category Payer Medicare [id number] 2024 Self-pay 2024 Unknown [id number] 2024 Unknown [id number] Unknown [id number] Unknown [id number] Unknown [id number] [id number] [id number] Unknown [id number] [id number] [id number] Unknown [id number] [id number] [id number] Social History Date Type [facility]ail [facility] Work Phone: Start: 07-03-2024 Sex Female (finding) [facility] Start: 1950 Sex Assigned At Female [facility] Start: 09-06-2024 Tobacco smoking stat us [facility]IS Never smoked tobacco (finding) [facility] Evaluation note 09-06-2024 Note Date & Type Note Facility 09-06-2024 Evaluation note Diagnosis Onset Date Resolution Maxillary sinusitis acute August 272024 11:22am UTI (urinary tract infection) acute September 06, 2024 1 1:22am [facility] Work Phone: Evaluation note Note Date & Type Note Facility Evaluation note No assessment information availa ble [facility] Work Phone: Reason for referral (narrative) Note Date & Type Note Facility Reason for referral (narrative) No reason for referral information available [facility] Work Phone: Chief Complaint and Reason for Visit Chief Complaint Admit Date SCREENING August 28, 2024 10:01a m Chief Complaint Admit Date SCREENING August 28, 2024 10:01a m CONCERN FOR SINUS INFECTION September 06 11:22am Reason for Visit Admit Date Maxillary sinusitis September 06, 2024 11:22 am UTI (urinary tract infection) September 06, 2024 11:22am Family History No Family History Records Found Relationship Condition Age at Onset Recorded Date/T marybel mother Malignant neoplasm of breast Unknown sister Malignant neoplasm of breast Unknown Summary Purpose Advance Directives No Advanced Directives Records Found Additional Source Comments Care Teams (unrecognized sec tion and content) Team Status: Active Member Role Status Courtney Amaya MD Primary Care Provider Active Team Status: Inactive Member Role Status Courtney Amaya MD Primary Care Provider Active St art: June 15, 2024 End: June 15, 2024 Carisa Amaya MD Attending Provider Active Start : June 15, 2024 End: June 15, 2024 Carisa Amaya MD Referring Provider Active Start : June 15, 2024 End: June 15, 2024 Team Status: Inactive Member Role Status Courtney Amaya MD Primary Care Provider Active St art: August 28, 2024 End: August 28, 2024 Carisa Amaya MD Attending Provider Active Start : August 28, 2024 End: August 28, 2024 Carisa Amaya MD Referring Provider Active Start : August 28, 2024 End: August 28, 2024 Team Status: Inactive Member Role Status Dates Carisa Amaya MD Primary Care Provider Active St art: September 06, 2024 End: September 06, 2024 Carisa Amaya MD Referring Provider Active Start : September 06, 2024 End: September 06, 2024 Adam Chowdary COMPENSATION SUPERVISOR, COMPENSATION SUPERVISOR-C Attending Provider Active S tart: September 06, 2024 End: September 06, 2024 Team Status: Inactive Member Role Status Dates Carisa Amaya MD Primary Care Provider Active St art: September 07, 2024 End: September 07, 2024 Adam Chowdary COMPENSATION SUPERVISOR, COMPENSATION SUPERVISOR-C Attending Provider Active S tart: September 07, 2024 End: September 07, 2024 Adam Chowdary NP, COMPENSATION SUPERVISOR-C Referring Provider Active S tart: September 07, 2024 End: September 07, 2024 Goals (unrecognized section and content) Goals may be documented in a n alternate sectionGoals may be documented in an alternate sectionGoals may be documented in an alternate section INFORMATION SOURCE (unrecogn ized section and content) DATE CREATED AUTHOR 12/27/2024 [facility] FOR RECORDS PERTAINING TO PATIENTS WHO ARE OR HAVE BEEN ENROLLED IN A CHEMICAL DEPENDENCY/SUBSTANCEABUSE PROGRAM, SOME INFORMATION MAY BE OMITTED. This clinical summary was aggregated from multiple sources. Caution should be exercised in using it in the provision of clinical care. This summary normalizes information from multiple sources, and as a consequence, information in this document may materially change the coding, format and clinical context of patient data. In addition, data may be omitted in some cases. CLINICAL DECISIONS SHOULD BE BASED ON THE PRIMARY CLINICAL RECORDS. [employer] provides no warranty or guarantee of the accuracy or completeness of information in this document.
== END | disposition home or self-care (01) ==
LOC: MFPLAB 11:04
PROVIDERS: PCP Family Medicine; Referring Provider Family Medicine; Visit Provider Family Medicine
DX: E03.9 Hypothyroidism, unspecified (principal); K21.9 Gastro-esophageal reflux disease without esophagitis; R60.9 Edema, unspecified; E87.6 Hypokalemia
CPT/HCPCS: 36415; 82043; 82570; 84132; 84443

== ENCOUNTER → 2024-12-30 | Outpatient (CLI) | payer MEDICARE, OTHER, SELFPAY ==
--- NOTE | 2024-12-30 09:16 | BD_ITS ---
PROCEDURE: DEXA BONE DENSITY STUDY 12/30/2024 REASON FOR EXAM: F, age 74 y/o . Postmenopausal. TECHNIQUE: Procedure Code: BDDBD Modality: DX Procedure: DEXA BONE DENSITY STUDY COMPARISON: None FINDINGS: BMD and T-SCORES Lumbar spine: 0.901 g/cm2, T-score -0.7 Levels: L1 through L4 Left femoral neck: 0.790 g/cm2, T-score -0.5 Femoral neck comparison data not recommended for monitoring change. Left total hip: 0.891 g/cm2, T-score -0.4 Right femoral neck: 0.786 g/cm2, T-score -0.6 Femoral neck comparison data not recommended for monitoring change. Right total hip: 0.887 g/cm2, T-score -0.5 The World Health Organization has defined the following categories based on bone density: Normal bone density: T-score equal to or greater than -1.0 Osteopenia: T-score between -1.0 and -2.5 Osteoporosis: T-score equal to or less than -2.5 FRAX (or Comparable) Fracture Risk Assessment: 10 Year Probability of Fracture: Major Osteoporotic Fracture: 8.3% Hip Fracture: 1.0% (Note: FRAX is not to be reported in setting of normal range bone density, osteoporosis on DEXA, known history of osteoporosis, prior osteoporotic hip or vertebral fracture, or for any patient undergoing pharmacological treatment for bone loss.) The National Osteoporosis Foundation (NOF) recommends pharmacological treatment for patients with a FRAX 10-year risk of 3% or higher for a hip fracture, or 20% or higher for a major osteoporotic fracture, to prevent osteoporosis and reduce fracture risk. The patient does not meet the pharmacological treatment recommendations for prevention of osteoporosis. BD/Dexa Bone Density Study IMPRESSION: NORMAL T-SCORES. Recommend follow-up as clinically warranted. Reading Location: [place] [address]
== END | disposition home or self-care (01) ==
LOC: OPBD 09:11
PROVIDERS: PCP Family Medicine
DX: Z13.820 Encounter for screening for osteoporosis (principal); Z78.0 Asymptomatic menopausal state
CPT/HCPCS: 77080